=== PATIENT | female | born 1965 | race Caucasian/White ===

== ENCOUNTER → 2017-06-24 | Emergency (ER) | payer BC, SELFPAY | DX: J01.00 Acute maxillary sinusitis, unspecified (principal) ==

== ENCOUNTER 2017-07-23 13:34 | Emergency (ER) | payer BC, SELFPAY ==
[2017-07-23 14:00] VITALS: BP 152/76; PULSE 85; RESP 18; TEMP 37.3; O2SAT 99; BMI 35.9
[2017-07-23 14:13] VITALS: BP 152/76; PULSE 85; RESP 18; TEMP 37.3; O2SAT 99; BMI 35.9
--- NOTE | 2017-07-23 14:58 | HMH.EDUTC ---
[facility] [place] Impression: Allergic rhinitis Qualifiers: Allergic rhinitis trigger: other Allergic rhinitis seasonality: seasonal Qualified Code(s): J30.89 - Other allergic rhinitis Disposition: Home, Self-Care Condition on Discharge: Good Instructions: DI for Allergic Rhinitis, Allergic Rhinitis Additional Instructions: Tylenol or ibuprofen as needed for pain or fever Follow-up with primary care this week If symptoms worsen or do not improve return or be seen in the ER discussed with patient if coloring drainage return or be seen by pcp Prescriptions: Brompheniramine/Pseudoephed/Dm [Bromfed DM Cough Syrup 5mL] 10 ml PO Q6 PRN 3 Days syrup PRN Reason: Cough Referrals: Pranav Rodriguez MD [Primary Care Provider] - Time of Disposition: 15:04 Medical Decision Making Vital Signs: 07/23/17 14:00 07/23/17 14:13 Temperature 99.1 F 99.1 F Temperature Source Oral Temporal Artery Scan Pulse Rate [Radial] 85 85 Respiratory Rate 18 18 Blood Pressure [Right Arm] 152/76 152/76 Blood Pressure Mean [Right Arm] 101 101 Blood Pressure Source [Right Arm] Automatic Cuff Automatic Cuff Blood Pressure Position [Right Arm] Sitting Sitting 02 Sat by Pulse Oximetry 99 99 Oxygen Delivery Method Room Air Room Air - Bubba Inquiry Pt receiving controlled substance: No [facility] [place] - General Chief complaint: [facility] Stated complaint: congested,cold Time Seen by Provider: 07/23/17 14:59 Mode of Arrival: Ambulatory Source of Information: Patient Limitations: No Limitations Description of Symptoms (Recalled from Triage Doc. by RN): ACHES, COUGH, CONGESTION HEENT Symptoms (Recalled from RN notes): Yes Resp Symptoms (Recalled from RN notes): Yes Skin Symptoms (Recalled from RN notes): No MS Symptoms (Recalled from RN notes): No Functional Status (Recalled from RN notes): NA - History of Present Illness Provider Complaint: 2-year-old female presents today for clear nasal drainage, cough, chest congestion and body aches ?1 week. - Related Data Previous Rx's Medication Instructions Recorded Brompheniramine/Pseudoephed/Dm 10 ml PO Q6 PRN 3 Days syrup 07/23/17 [Bromfed DM Cough Syrup 5mL] Allergies Allergy/AdvReac Type Severity Reaction Status Date / Time No Known Allergies Allergy Verified 07/23/17 14:19 - Worker's Comp Is this a Worker's Comp case?: No H History I have reviewed the patient's past medical history: Yes Amputation: No Fractures: No - *Social History Smoking Status: Current every day smoker Tobacco Type: cigarettes Alcohol Intake: never - Psychiatric History Expresses thoughts of harming self/others: None Suicide Plan Description: No Plan ROS Obtained: Yes All systems reviewed & no additional complaints - Constitutional Constitutional: Reports system reviewed and no additional complaints, except as docu, Reports as per HPI, Reports body ache - Eyes Eyes: Reports system reviewed and no additional complaints, except as docu - ENT Ears, Nose, Mouth, and Throat: Reports system reviewed and no additional complaints, except as docu, Reports nasal congestion, Reports nasal discharge - Cardiovascular Cardiovascular: Reports system reviewed and no additional complaints, except as docu - Respiratory Respiratory: Yes system reviewed and no additional complaints, except as docu, Yes as per HPI, Yes chest congestion, Yes cough - Gastrointestinal Gastrointestingal: Reports: system reviewed and no additional complaints, except as docu - Musculoskeletal Musculoskeletal: Reports system reviewed and no additional complaints, except as docu - Integumentary/Breasts Skin/Breast: Reports system reviewed and no additional complaints, except as docu - Neurologic Neurologic: Reports system reviewed and no additional complaints, except as docu - Endocrine Endocrine: Reports system reviewed and no additional complaints, except as docu - Hematologic/Lymphatic Henat
--- NOTE | 2017-07-23 15:02 | ED_ITS ---
[facility] [place] Clinical Impression: Allergic rhinitis Qualifiers: Allergic rhinitis trigger: other Allergic rhinitis seasonality: seasonal Qualified Code(s): J30.89 - Other allergic rhinitis Disposition: Home, Self-Care Condition on Discharge: Good Instructions: DI for Allergic Rhinitis, Allergic Rhinitis Additional Instructions: Tylenol or ibuprofen as needed for pain or fever Follow-up with primary care this week If symptoms worsen or do not improve return or be seen in the ER discussed with patient if coloring drainage return or be seen by pcp Prescriptions: Brompheniramine/Pseudoephed/Dm [Bromfed DM Cough Syrup 5mL] 10 ml PO Q6 PRN 3 Days syrup PRN Reason: Cough Referrals: Pranav Rodriguez MD [Primary Care Provider] - Time of Disposition: 15:04 Medical Decision Making Vital Signs: 07/23/17 14:00 07/23/17 14:13 Temperature 99.1 F 99.1 F Temperature Source Oral Temporal Artery Scan Pulse Rate [Radial] 85 85 Respiratory Rate 18 18 Blood Pressure [Right Arm] 152/76 152/76 Blood Pressure Mean [Right Arm] 101 101 Blood Pressure Source [Right Arm] Automatic Cuff Automatic Cuff Blood Pressure Position [Right Arm] Sitting Sitting 02 Sat by Pulse Oximetry 99 99 Oxygen Delivery Method Room Air Room Air - Bubba Inquiry Pt receiving controlled substance: No [facility] [place] HPI - General Chief complaint: Urgent Treatment Center Stated complaint: congested,cold Time Seen by Provider: 07/23/17 14:59 Mode of Arrival: Ambulatory Source of Information: Patient Limitations: No Limitations Description of Symptoms (Recalled from Triage Doc. by RN): ACHES, COUGH, CONGESTION HEENT Symptoms (Recalled from RN notes): Yes Resp Symptoms (Recalled from RN notes): Yes Skin Symptoms (Recalled from RN notes): No MS Symptoms (Recalled from RN notes): No Functional Status (Recalled from RN notes): NA - History of Present Illness Provider Complaint: 2-year-old female presents today for clear nasal drainage, cough, chest congestion and body aches ?1 week. - Related Data Previous Rx's Medication Instructions Recorded Brompheniramine/Pseudoephed/Dm 10 ml PO Q6 PRN 3 Days syrup 07/23/17 [Bromfed DM Cough Syrup 5mL] Allergies Allergy/AdvReac Type Severity Reaction Status Date / Time No Known Allergies Allergy Verified 07/23/17 14:19 - Worker's Comp Is this a Worker's Comp case?: No H History I have reviewed the patient's past medical history: Yes Amputation: No Fractures: No - *Social History Smoking Status: Current every day smoker Tobacco Type: cigarettes Alcohol Intake: never - Psychiatric History Expresses thoughts of harming self/others: None Suicide Plan Description: No Plan ROS Obtained: Yes All systems reviewed & no additional complaints - Constitutional Constitutional: Reports system reviewed and no additional complaints, except as docu, Reports as per HPI, Reports body ache - Eyes Eyes: Reports system reviewed and no additional complaints, except as docu - ENT Ears, Nose, Mouth, and Throat: Reports system reviewed and no additional complaints, except as docu, Reports nasal congestion, Reports nasal discharge - Cardiovascular Cardiovascular: Reports system reviewed and no additional complaints, except as docu - Respiratory Respiratory: Yes system reviewed and no additional complaint
[2017-07-30 17:22] LABS: UTC Influenza A Antigen Negative (Negative); UTC Influenza B Antigen Negative (Negative)
== END 2017-07-23 15:22 | disposition home or self-care (01) ==
LOC: ER 13:47 → UTC 13:50
PROVIDERS: Emergency Provider Nurse Practitioner Family; PCP Family Medicine
DX: J30.89 Other allergic rhinitis (principal); F17.210 Nicotine dependence, cigarettes, uncomplicated
CPT/HCPCS: 87804; 99201

== ENCOUNTER 2017-09-03 07:10 | Emergency (ER) | payer BC, SELFPAY ==
[2017-09-03 07:11] VITALS: BP 139/52; PULSE 89; RESP 22; TEMP 36.7; O2SAT 99; BMI 31.5
--- NOTE | 2017-09-03 07:21 | XR_ITS ---
XR chest 2V Ordering Physician: Jason Frey MD Patient Age: 52 years: Female HISTORY: ITS.REASON: cough, SOA TECHNIQUE: PA and lateral chest portable chest COMPARISON : 2011 & 2012 portable chest x-rays FINDINGS On today's study there is some slight accentuation of markings central lung and perihilar region bilaterally. Likely reflects chronic changes with history of smoking however I would question there may be a very subtle perihilar infiltrate and subtle central pneumonitis on right more so than left, and extending towards right infrahilar region.More likely viral. Correlation required. No focal or lobar consolidation. No pleural effusion. . Heart is normal in size je and mediastinal structures satisfactory chest wall T-spine unremarkable. 7. IMPRESSION Chronic changes bilaterally. However I am suspect of slight additional coarsening of central markings today. Question & suspect a very subtle central, perihilar infiltrate bilaterally, most evident right infrahilar region more so than left.
[2017-09-03 07:30] VITALS: PULSE 81; PULSE 84
--- NOTE | 2017-09-03 07:44 | PC.NURSE ---
Pt to xray.
--- NOTE | 2017-09-03 08:15 | HMH.EDURI ---
ED Disposition Clinical Impression: Bronchitis Disposition: Home, Self-Care Condition on Discharge: Good Additional Instructions: Follow up with MD of choice, see list provided; inhaler as directed, medrol dosepak as directed, Zpack as directed Prescriptions: Albuterol Sulfate [Proventil-HFA 90mcg/puff Inh] 1 - 2 puffs IH Q4HP PRN #1 inh PRN Reason: Cough Azithromycin [Z-Da 250mg Tab] 250 mg PO UD DOSE PK #6 tab methylPREDNISolone [Medrol] 4 mg PO DAILY #1 tab.ds.pk Referrals: Jason Frey MD [Emergency Provider] - Time of Disposition: 08:15 - Critical Care Critical Care Time: No Attestation: On 09/03/17, the high probability of a clinically significant, sudden or life threatening deterioration of the following system(s) required my full and direct attention, intervention and personal management. The time I documented below is in addition to time spent performing reported procedures but includes the following listed in this critical care notation. Medical Decision Making Vital Signs: 09/03/17 07:11 09/03/17 07:30 Temperature 98.1 F Temperature Source Oral Pulse Rate 81 Pulse Rate [Right Brachial] 89 Respiratory Rate 22 Blood Pressure [Right Arm] 139/52 Blood Pressure Mean [Right Arm] 81 Blood Pressure Source [Right Arm] Automatic Cuff Blood Pressure Position [Right Arm] Sitting 02 Sat by Pulse Oximetry 99 Oxygen Delivery Method Room Air Orders (Tests/Meds): ED MEDICATIONS Generic Name Dose Route Start Last Admin Trade Name Freq PRN Reason Stop Dose Admin Prednisone 80 mg 09/03/17 08:16 Deltasone 20mg Tablet PO 09/03/17 08:17 ONCE ONE Discontinued Medications Generic Name Dose Route Start Last Admin Trade Name Freq PRN Reason Stop Dose Admin Albuterol/Ipratropium 3 ml 09/03/17 07:21 09/03/17 07:28 Duoneb 3ml Neb IH 09/03/17 07:22 3 ml ONCE ONE Administration ORDERS Category Date Time Status XR chest 2V Stat Exams 09/03/17 07:21 Taken - Radiology Data #1 Image(s): Chest Image Reviewed: Yes I reviewed the patient's radiology image Preliminary Findings: No Infiltrates Seen, Normal Lung Inflation [place], Normal Heart Size Calcifications noted to the left. - Bubba Inquiry Pt receiving controlled substance: No URI/Sore Throat HPI - General Chief Complaint: Upper Respiratory Infection Stated Complaint: SOA Time Seen by Provider: 09/03/17 07:45 Mode of Arrival: Ambulatory Limitations: No Limitations Description of Symptoms (Recalled from ER Triage Doc. by RN): Pt reports trouble catching her breath, loose productive cough x3 days - History of Present Illness HPI Narrative: Patient reports a tight, bronchitic cough over the past 4 days. She was given a DuoNeb on arrival as she was coughing. This improved her cough somewhat. She denies any nausea vomiting or diarrhea. No fever. Ears feel full. Throat feels a little scratchy. No dysphagia. She is a smoker. 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 Denies any weight loss or night sweats. Reports occasional yellow sputum. She does not use inhalers at home. Onset (ago): day(s) Duration: intermittent Severity: mild Relieving factors: nothing Exacerbating factors: nothing Description of mucous: yellow Able to tolerate fluids by mouth: Yes Associated symptoms: nasal congestion, cough, ear pain Treatments prior to arrival: none - Related Data Previous Rx's Medication Instructions Recorded Albuterol Sulfate [Proventil-HFA 1 - 2 puffs IH Q4HP PRN #1 inh 09/03/17 90mcg/puff Inh] Azithromycin [Z-Da 250mg Tab] 250 mg PO UD DOSE PK #6 tab 09/03/17 methylPREDNISolone [Medrol] 4 mg PO DAILY #1 tab.ds.pk 09/03/17 Allergies Allergy/AdvReac Type Severity Reaction Status Date / Time No Known Allergies Allergy Verified 09/03/17 07:26 [facility] History I have reviewed the patient's past medical history: Yes Medical H
[2017-09-03 08:37] VITALS: BP 144/89; PULSE 84; RESP 20; TEMP 36.9; O2SAT 96
== END 2017-09-03 08:37 | disposition home or self-care (01) ==
PROVIDERS: Emergency Provider Emergency Medicine; PCP Family Medicine
DX: J30.9 Allergic rhinitis, unspecified (principal); J20.9 Acute bronchitis, unspecified; F17.210 Nicotine dependence, cigarettes, uncomplicated
CPT/HCPCS: 71046; 99282